=== PATIENT | male | born 1975 | race Caucasian/White ===

== ENCOUNTER 2018-04-28 09:19 | Inpatient (IN) | payer OTHER ==
[2018-04-28 09:41] VITALS: BMI 39.9
[2018-04-28] MEDS ORDERED: Sodium Chloride 0.9% 1,000 ML IV ONE (09:41)
--- NOTE | 2018-04-28 09:43 | C.PDOC ---
History Of Present Illness 42 year old male presents to the ED complaining of chest pain that began at 0530 this morning and palpitations ongoing for a while intermittently. Patient denies radiation of pain, leg swelling, nausea, vomiting, fever, chills or cough. Patient denies family history. Patient reports he is not on any medications. Time Seen by Provider: 04/28/18 09:29 Chief Complaint (Nursing): Chest Pain History Per: Patient History/Exam Limitations: no limitations Onset/Duration Of Symptoms: Hrs Current Symptoms Are (Timing): Still Present Past Medical History Reviewed: Historical Data, Nursing Documentation, Vital Signs Vital Signs: Last Vital Signs Temp 98 F 04/28/18 09:26 Pulse 71 04/28/18 11:42 Resp 18 04/28/18 11:42 BP 106/61 04/28/18 11:42 Pulse Ox 98 04/28/18 11:42 - Medical History PMH: No Chronic Diseases Other Surgeries: Hx of surgeries Family History: States: No Known Family Hx - Social History Hx Alcohol Use: No Hx Substance Use: No Review Of Systems Except As Marked, All Systems Reviewed And Found Negative. Constitutional: Negative for: Fever, Chills Cardiovascular: Positive for: Chest Pain, Palpitations Respiratory: Negative for: Cough, Shortness of Breath Gastrointestinal: Negative for: Nausea, Vomiting Physical Exam - Physical Exam Appears: Non-toxic, No Acute Distress Skin: Warm, Dry Head: Atraumatic, Normacephalic Eye(s): bilateral: Normal Inspection Nose: Normal Oral Mucosa: Moist Neck: Supple Chest: Symmetrical Cardiovascular: Rhythm Regular, Other (Tachycardic on exam ) Respiratory: Normal Breath Sounds, No Rales, No Rhonchi, No Wheezing Gastrointestinal/Abdominal: Soft, No Tenderness, No Guarding Extremity: No Pedal Edema, No Swelling Extremity: Bilateral: Atraumatic, Normal Color And Temperature, Normal ROM Neurological/Psych: Oriented x3, Normal Speech Gait: Steady ED Course And Treatment - Laboratory Results Result Diagrams: 04/28/18 09:50 04/28/18 09:50 Lab Interpretation: No Changes Compared To Prior Results ECG: Interpreted By Me, Viewed By Me ECG Rhythm: Atrial Fibrillation Rate From EC Pulse Ox Interpretation: Normal - Radiology CXR: Interpreted by Me CXR Interpretation: Yes: No Acute Disease Progress Note: Treated with IVF NSS, cardizem bolus and drip. 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 - Scribe Statement The provider has reviewed the documentation as recorded by the Scribe Vida Ghosh All medical record entries made by the Ciroibe were at my direction and personally dictated by me. I have reviewed the chart and agree that the record accurately reflects my personal performance of the history, physical exam, medical decision making, and the department course for this patient. I have also personally directed, reviewed, and agree with the discharge instructions and disposition. Decision To Admit - Pt Status Changed To: Hospital Disposition Of: Inpatient - Admit Certification Admit to Inpatient:: After my assessment, the patient will require hospitalization for at least two midnights. This is because of the severity of symptoms shown, intensity of services needed, and/or the medical risk in this patient being treated as an outpatient. - InPatient: Physician Admission Certification: I certify that this patient requires 2 or more midnights of care for the following reason:: New Onset A fib. Chest Pain - . Bed Request Type: Telemetry Admitting Physician: Boris Chow Patient Diagnosis: Chest pain, New onset a-fib
[2018-04-28 09:54] LABS: BASO # 0.1 K/uL (0.0-0.2); BASO % 0.7 % (0.0-2.0); EOS # 0.1 K/uL (0.0-0.7); EOS % 1.4 % (0.0-4.0); HEMOGLOBIN 15.3 g/dL (12.0-18.0); LYMPH # 2.2 K/uL (1.0-4.3); LYMPH % 32.5 % (20.0-40.0); MEAN CELL VOLUME 87.4 fL (80.0-94.0); MEAN CORPUSCULAR HEMOGLOBIN 30.7 pg (27.0-31.0); MEAN CORPUSCULAR HGB CONC 35.1 g/dL (33.0-37.0); MEAN PLATELET VOLUME 7.5 fL (7.2-11.7); MONO # 0.4 K/uL (0.0-0.8); MONO % 5.9 % (0.0-10.0); NEUT # 4.1 K/uL (1.8-7.0); NEUT % 59.5 % (50.0-75.0); RBC 4.98 Mil/uL (4.40-5.90); RED CELL DISTRIBUTION WIDTH 12.2 % (11.5-14.5); WHITE BLOOD COUNT 6.9 K/uL (4.8-10.8)
[2018-04-28] MEDS ORDERED: Sodium Chloride 0.9% 1,000 ML ONE (09:58)
[2018-04-28 10:12] LABS: ALB/GLOB RATIO 1.2 (1.0-2.1); ALBUMIN 3.9 g/dL (3.5-5.0); ALT/SGPT 37 U/L (21-72); AST/SGOT 26 U/L (17-59); BLOOD UREA NITROGEN 11 mg/dL (9-20); CALCIUM 8.7 mg/dl (8.6-10.4); GFR AFRICAN-AMERICAN > 60; GFR NON-AFRICAN AMERICAN > 60
[2018-04-28 11:49] LABS: URINE BILIRUBIN NEGATIVE (NEGATIVE); URINE BLOOD NEGATIVE (NEGATIVE); URINE CLARITY Clear (Clear); URINE COLOR Yellow (YELLOW); URINE GLUCOSE (UA) NORMAL (Normal); URINE LEUKOCYTE ESTERASE NEG Leu/uL (Negative); URINE PROTEIN NEGATIVE (NEGATIVE); URINE UROBILINOGEN NORMAL mg/dL (0.2-1.0)
[2018-04-28 12:06] LABS: BARBITURATES, UR NEGATIVE (NEGATIVE); BENZODIAZEPINES, UR NEGATIVE (NEGATIVE)
[2018-04-28 12:21] LABS: OPIATES, UR NEGATIVE (NEGATIVE); PHENCYCLIDINE, UR NEGATIVE (NEGATIVE)
[2018-04-28] MEDS ORDERED: Potassium Chloride 20 mEq ER Tab PO STA (13:05)
--- NOTE | 2018-04-28 13:08 | CP.PCM.HP ---
<Katelynn Denny - Last Filed: 04/28/18 19:44> History of Present Illness - History of Present Illness History of Present Illness: Patient seen and examined at approximately 12:45PM in ED Bed 14. Patient is a FULL CODE status at this time. Patient's emergency contact is his , Jacey Escalante. She can be reached at [phone]. CC: palpitations HPI: 42 year old male with no past medical history presents with complaints of palpitations which began around 5:30 AM this morning. Patient states that maybe his sugar was low, so he ate some honey and waited. When his symptoms didn't resolve, he decided to come to the emergency room. He states that he has been having symptoms for the past two weeks. Patient states that his symptoms have been exacerbated by activity. Patient also admits to some occasional shortness of breath at times within this time period as well. He states that he can only walk one block or climb two flights of stairs before feeling short of breath. Patient uses one pillow under his head when he sleeps at night. Patient states that he drinks red bull from time to time. Patient admits to headaches and some dizziness. Patient denies chest pain , recent sickness, subjective fevers or chills, nausea, vomiting or back pain. 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 Bethel Howard Present on Admission - Present on Admission Any Indicators Present on Admission: No Review of Systems - Constitutional Constitutional: Headache. absent: Fever, Frequent Falls - EENT Eyes: absent: Blurred Vision, Change in Vision Ears: absent: Decreased Hearing, Ear Discharge Nose/Mouth/Throat: absent: Nasal Congestion, Nasal Discharge - Cardiovascular Cardiovascular: Dyspnea, Dyspnea on Exertion, Palpitations. absent: Chest Pain at Rest, Rapid Heart Rate - Respiratory Respiratory: Dyspnea, Dyspnea on Exertion. absent: Cough, Chest Congestion, Pain with Coughing - Gastrointestinal Gastrointestinal: absent: Constipation, Diarrhea, Nausea, Vomiting - Genitourinary Genitourinary: absent: Difficulty Urinating, Dysuria - Musculoskeletal Musculoskeletal: absent: Back Pain, Muscle Weakness, Stiffness - Integumentary Integumentary: absent: Dry Skin, Rash - Neurological Neurological: absent: Abnormal Hearing, Confusion, Restless Legs, Weakness Past Patient History - Past Social History Smoking Status: Never Smoked Alcohol: None Drugs: Denies Home Situation {Lives}: With Family - PSYCHIATRIC Hx Substance Use: No - SURGICAL HISTORY Hx Surgeries: Yes Meds Allergies/Adverse Reactions: Allergies Allergy/AdvReac Type Severity Reaction Status Date / Time No Known Allergies Allergy Unverified 04/28/18 09:25 Physical Exam - Constitutional Appears: Non-toxic, No Acute Distress - Head Exam Head Exam: ATRAUMATIC, NORMAL INSPECTION, NORMOCEPHALIC - Eye Exam Eye Exam: EOMI, Normal appearance Pupil Exam: NORMAL ACCOMODATION - ENT Exam ENT Exam: Mucous Membranes Moist - Neck Exam Neck exam: Positive for: Full Rom - Respiratory Exam Respiratory Exam: NORMAL BREATHING PATTERN. absent: Wheezes - Cardiovascular Exam Cardiovascular Exam: Irregular Rhythm, +S1, +S2. absent: Tachycardia, JVD, Systolic Murmur - GI/Abdominal Exam GI & Abdominal Exam: Soft. absent: Guarding, Tenderness - Extremities Exam Extremities exam: Positive for: full ROM, normal capillary refill, pedal pulses present. Negative for: pedal edema Additional comments: superficial varicosities noted - Back Exam Back exam: FULL ROM - Neurological Exam Neurological exam: Alert, CN II-XII Intact, Oriented x3 - Psychiatric Exam Psychiatric exam: Normal Affect, Normal Mood - Skin Skin Exam: Dry, Intact, Warm Results - Vital Signs Recent Vital Signs: Last Vital Signs Temp 98 F 04/28/18 09:26 Pulse 71 04/28/18 11:42 Resp 18 04/28/18 11:42 BP 106/61 04/28/18 11:42 Pulse Ox 98 04/28/18 11:42 - Labs Result Diagrams: 04/28/18 09:50 04/28/18 09:50 Labs: Laboratory Results - last 24 hr 04/28/18 04/28/18 04/28/18 09:50 09:50 11:38 WBC 6.9 RBC 4.98 Hgb 15.3 Hct 43.5 MCV 87.4 MCH 30.7 MCHC 35.1 RDW 12.2 Plt Count 214 MPV 7.5 Neut % (Auto) 59.5 Lymph % (Auto) 32.5 [place] % (Auto) 5.9 Eos % (Auto) 1.4 Baso % (Auto) 0.7 Neut # (Auto) 4.1 Lymph # (Auto) 2.2 [place] # (Auto) 0.4 Eos # (Auto) 0.1 Baso # (Auto) 0.1 Sodium 141 Potassium 3.4 L Chloride 103 Carbon Dioxide 27 Anion Gap 14 BUN 11 Creatinine 0.7 L Est GFR ( Amer) > 60 Est GFR (Non-Af Amer) > 60 Random Glucose 131 H Calcium 8.7 Total Bilirubin 0.6 AST 26 ALT 37 Alkaline Phosphatase 61 Troponin I < 0.0120 Total Protein 7.1 Albumin 3.9 Globulin 3.3 Albumin/Globulin Ratio 1.2 TSH 3rd Generation 1.22 Urine Color Yellow Urine Clarity Clear Urine pH 7.0 Ur Specific [place] 1.013 Urine Protein Negative Urine Glucose (UA) Normal Urine Ketones Negative Urine Blood Negative Urine Nitrate Negative Urine Bilirubin Negative Urine Urobilinogen Normal Ur Leukocyte Esterase Neg Urine WBC (Auto) < 1 Urine RBC (Auto) < 1 Urine Opiates Screen Urine Methadone Screen Ur Barbiturates Screen Ur Phencyclidine Scrn Ur Amphetamines Screen U Benzodiazepines Scrn U Oth Cocaine Metabols U Cannabinoids Screen 04/28/18 11:38 WBC RBC Hgb Hct MCV MCH MCHC RDW Plt Count MPV Neut % (Auto) Lymph % (Auto) [place] % (Auto) Eos % (Auto) Baso % (Auto) Neut # (Auto) Lymph # (Auto) [place] # (Auto) Eos # (Auto) Baso # (Auto) Sodium Potassium Chloride Carbon Dioxide Anion Gap BUN Creatinine Est GFR ( Amer) Est GFR (Non-Af Amer) Random Glucose Calcium Total Bilirubin AST ALT Alkaline Phosphatase Troponin I Total Protein Albumin Globulin Albumin/Globulin Ratio TSH 3rd Generation Urine Color Urine Clarity Urine pH Ur Specific [place] Urine Protein Urine Glucose (UA) Urine Ketones Urine Blood Urine Nitrate Urine Bilirubin Urine Urobilinogen Ur Leukocyte Esterase Urine WBC (Auto) Urine RBC (Auto) Urine Opiates Screen Negative Urine Methadone Screen Negative Ur Barbiturates Screen Negative Ur Phencyclidine Scrn Negative Ur Amphetamines Screen Negative U Benzodiazepines Scrn Negative U Oth Cocaine Metabols Negative U Cannabinoids Screen Negative Assessment & Plan (1) New onset a-fib Assessment and Plan: Atrial fibrillation with RVR upon arrival in the ED Patient was administered Cardizem 15 mg IV in the ER. Cardizem drip also started. This was discontinued once patient's heart rate stabilized. EKG initially showed afib with RVR however repeat EKG showed atrial fibrillation with heart rate stabilized Will switch over to Cardizem 120 mg PO CD daily On telemetry Continue to monitor F/U AM labs Status: Acute (2) Palpitations Assessment and Plan: Thyroid studies performed- TSH within normal parameters (1.22). F/U Free T4 Will have to ask patient about red bull drink intake Status: Acute (3) Electrolyte abnormality Assessment and Plan: Repleted Continue to monitor Status: Acute (4) Prophylactic measure Assessment and Plan: Ambulates No GI Prophylaxis indicated at this time. Status: Acute <Boris Chow - Last Filed: 04/29/18 20:53> Results - Vital Signs Recent Vital Signs: Last Vital Signs Temp 97.5 F L 04/29/18 07:00 Pulse 100 H 04/29/18 08:00 Resp 20 04/29/18 07:00 BP 122/83 04/29/18 07:00 Pulse Ox 97 04/29/18 07:00 - Labs Result Diagrams: 04/29/18 08:28 04/29/18 08:28 Labs: Laboratory Results - last 24 hr 04/29/18 04/29/18 04/29/18 08:28 08:28 08:28 WBC 7.5 RBC 5.45 Hgb 16.6 Hct 47.5 MCV 87.2 MCH 30.6 MCHC 35.1 RDW 12.7 Plt Count 236 MPV 7.8 Neut % (Auto) 59.8 Lymph % (Auto) 33.5 [place] % (Auto) 5.5 Eos % (Auto) 0.8 Baso % (Auto) 0.4 Neut # (Auto) 4.5 Lymph # (Auto) 2.5 [place] # (Auto) 0.4 Eos # (Auto) 0.1 Baso # (Auto) 0.0 Sodium 140 Potassium 3.8 Chloride 104 Carbon Dioxide 26 Anion Gap 14 BUN 11 Creatinine 0.7 L Est GFR ( Amer) > 60 Est GFR (Non-Af Amer) > 60 Random Glucose 99 Hemoglobin A1c 5.5 Calcium 8.9 Phosphorus 3.0 Magnesium 2.0 Total Bilirubin 0.6 AST 23 ALT 39 Alkaline Phosphatase 76 Total Protein 7.4 Albumin 4.1 Globulin 3.3 Albumin/Globulin Ratio 1.3 Triglycerides 183 H Cholesterol 196 LDL Cholesterol Direct 133 H HDL Cholesterol 26 L Free T4 04/29/18 08:28 WBC RBC Hgb Hct MCV MCH MCHC RDW Plt Count MPV Neut % (Auto) Lymph % (Auto) [place] % (Auto) Eos % (Auto) Baso % (Auto) Neut # (Auto) Lymph # (Auto) [place] # (Auto) Eos # (Auto) Baso # (Auto) Sodium Potassium Chloride Carbon Dioxide Anion Gap BUN Creatinine Est GFR ( Amer) Est GFR (Non-Af Amer) Random Glucose Hemoglobin A1c Calcium Phosphorus Magnesium Total Bilirubin AST ALT Alkaline Phosphatase Total Protein Albumin Globulin Albumin/Globulin Ratio Triglycerides Cholesterol LDL Cholesterol Direct HDL Cholesterol Free T4 0.92 Attending/Attestation - Attestation I have personally seen and examined this patient.: Yes I have fully participated in the care of the patient.: Yes I have reviewed all pertinent clinical information: Yes Notes (Text): 04/29/18 20:53 This is late entry. Boris Chow D.O.
[2018-04-28] MEDS ORDERED: Potassium Chloride 20 mEq ER Tab PO ONE (13:38)
--- NOTE | 2018-04-28 13:54 | CARD ---
APPROVED REPORT Date of service: 04/28/2018 EXAM: Two-dimensional and M-mode echocardiogram with Doppler and color Doppler. Other Information Quality : GoodRhythm : NSR INDICATION Atrial Fibrillation M-Mode DIMENSIONS RVDd1.84 (2.1-3.2cm)Left Atrium (MM)3.69 (2.5-4.0cm) IVSd1.22 (0.7-1.1cm)Aortic Root3.39 (2.2-3.7cm) LVDd4.83 (4.0-5.6cm)Aortic Cusp Exc.2.14 (1.5-2.0cm) PWd1.18 (0.7-1.1cm)FS (%) 34 % LVDs3.21 (2.0-3.8cm)LVEF (%)62 (>50%) Aortic Valve AoV Peak Ycetckbn42.6cm/Rashi Peak GR.3mmHg Mitral Valve MV E Qxbauqkp51.8cm/sMV A Ymuwcnej22.6cm/sE/A ratio2.1 TDI E/Lateral E'0.0E/Medial E'0.0 Tricuspid Valve TR Peak [id number]/sTR Peak Gr.[id number] LEFT VENTRICLE The left ventricle is normal size. There is normal left ventricular wall thickness. The left ventricular systolic function is normal. The left ventricular ejection fraction is within the normal range. There is normal LV segmental wall motion. The left ventricular diastolic function is normal. Normal left atrial pressure. RIGHT VENTRICLE The right ventricular cavity appears prominent The right ventricular systolic function is normal. ATRIA The left atrium size is normal. The right atrium size is normal. The interatrial septum is intact with no evidence for an atrial septal defect. AORTIC VALVE The aortic valve is normal in structure. There is trace aortic regurgitation. MITRAL VALVE The mitral valve is normal in structure. TRICUSPID VALVE The tricuspid valve is normal in structure. There is mild tricuspid regurgitation. Right ventricular systolic pressure is estimated at less than 30 mmHg. PULMONIC VALVE The pulmonary valve is normal in structure. There is mild pulmonic valvular regurgitation. GREAT VESSELS The aortic root is normal in size. The IVC is normal in size and collapses >50% with inspiration. PERICARDIAL EFFUSION There is no pericardial effusion. <Conclusion> The left ventricular systolic function is normal. There is normal LV segmental wall motion. The right ventricular cavity appears prominent with normal systolic function. No significant valvular abnormality There is no pericardial effusion.
[2018-04-28 18:57] VITALS: RESP 20
--- NOTE | 2018-04-28 20:04 | CP.PCM.CON ---
History of Present Illness - History of Present Illness History of Present Illness: 42 year old no significant PMH presented with palpitation, afib treated with diltiazem, asymptomatic now, TSH normal f/u with echo, consider B todd, k 3.4 Review of Systems - Constitutional Constitutional: Anorexia. absent: Weakness - EENT Eyes: absent: Discharge Ears: absent: Ear Discharge Nose/Mouth/Throat: absent: Epistaxis - Cardiovascular Cardiovascular: Palpitations. absent: Acrocyanosis, Chest Pain, Diaphoresis, Syncope - Respiratory Respiratory: absent: Cough, Dyspnea, Hemoptysis - Gastrointestinal Gastrointestinal: absent: Abdominal Pain, Diarrhea, Vomiting - Genitourinary Genitourinary: absent: Change in Urinary Stream Past Patient History - Past Medical History & Family History Past Medical History?: No - Past Social History Smoking Status: Never Smoked Alcohol: None Drugs: Denies Home Situation {Lives}: With Family - MUSCULOSKELETAL/RHEUMATOLOGICAL Hx Falls: No - PSYCHIATRIC Hx Substance Use: No - SURGICAL HISTORY Hx Surgeries: Yes - ANESTHESIA Hx Anesthesia: No Hx Anesthesia Reactions: No Meds Home Medications: Home Medication List Medication Instructions Recorded Confirmed Type Aspirin [Aspirin Chewable] 81 mg PO DAILY 30 Days chew 04/29/18 Rx Atenolol [Tenormin] 25 mg PO DAILY 30 Days tab 04/29/18 Rx Allergies/Adverse Reactions: Allergies Allergy/AdvReac Type Severity Reaction Status Date / Time No Known Allergies Allergy Unverified 04/28/18 09:25 - Medications Medications: Current Medications Aspirin (Aspirin Chewable) 81 mg PO DAILY [facility] Diltiazem HCl (Cardizem Cd) 120 mg PO DAILY [facility] Heparin Sodium (Porcine) (Heparin) 5,000 units SC Q8 [facility] Physical Exam - Constitutional Appears: Non-toxic - Head Exam Head Exam: ATRAUMATIC - Eye Exam Eye Exam: EOMI - Neck Exam Neck exam: Negative for: Lymphadenopathy, Thyromegaly - Respiratory Exam Respiratory Exam: Clear to Auscultation Bilateral. absent: Rales - Cardiovascular Exam Cardiovascular Exam: Irregular Rhythm. absent: Systolic Murmur - GI/Abdominal Exam GI & Abdominal Exam: Normal Bowel Sounds. absent: Organomegaly - Rectal Exam Rectal Exam: Deferred - Extremities Exam Extremities exam: Positive for: normal capillary refill. Negative for: calf tenderness - Neurological Exam Neurological exam: Alert, Oriented x3 Results - Vital Signs Recent Vital Signs: Last Vital Signs Temp 97.8 F 04/28/18 18:10 Pulse 89 04/28/18 18:10 Resp 20 04/28/18 18:10 BP 111/80 04/28/18 18:10 Pulse Ox 97 04/28/18 18:10 - Labs Result Diagrams: 04/29/18 08:28 04/29/18 08:28 Labs: Laboratory Results - last 24 hr 04/28/18 04/28/18 04/28/18 09:50 09:50 11:38 WBC 6.9 RBC 4.98 Hgb 15.3 Hct 43.5 MCV 87.4 MCH 30.7 MCHC 35.1 RDW 12.2 Plt Count 214 MPV 7.5 Neut % (Auto) 59.5 Lymph % (Auto) 32.5 [place] % (Auto) 5.9 Eos % (Auto) 1.4 Baso % (Auto) 0.7 Neut # (Auto) 4.1 Lymph # (Auto) 2.2 [place] # (Auto) 0.4 Eos # (Auto) 0.1 Baso # (Auto) 0.1 Sodium 141 Potassium 3.4 L Chloride 103 Carbon Dioxide 27 Anion Gap 14 BUN 11 Creatinine 0.7 L Est GFR ( Amer) > 60 Est GFR (Non-Af Amer) > 60 Random Glucose 131 H Calcium 8.7 Total Bilirubin 0.6 AST 26 ALT 37 Alkaline Phosphatase 61 Troponin I < 0.0120 Total Protein 7.1 Albumin 3.9 Globulin 3.3 Albumin/Globulin Ratio 1.2 TSH 3rd Generation 1.22 Urine Color Yellow Urine Clarity Clear Urine pH 7.0 Ur Specific [place] 1.013 Urine Protein Negative Urine Glucose (UA) Normal Urine Ketones Negative Urine Blood Negative Urine Nitrate Negative Urine Bilirubin Negative Urine Urobilinogen Normal Ur Leukocyte Esterase Neg Urine WBC (Auto) < 1 Urine RBC (Auto) < 1 Urine Opiates Screen Urine Methadone Screen Ur Barbiturates Screen Ur Phencyclidine Scrn Ur Amphetamines Screen U Benzodiazepines Scrn U Oth Cocaine Metabols U Cannabinoids Screen 04/28/18 11:38 WBC RBC Hgb Hct MCV MCH MCHC RDW Plt Count MPV Neut % (Auto) Lymph % (Auto) [place] % (Auto) Eos % (Auto) Baso % (Auto) Neut # (Auto) Lymph # (Auto) [place] # (Auto) Eos # (Auto) Baso # (Auto) Sodium Potassium Chloride Carbon Dioxide Anion Gap BUN Creatinine Est GFR ( Amer) Est GFR (Non-Af Amer) Random Glucose Calcium Total Bilirubin AST ALT Alkaline Phosphatase Troponin I Total Protein Albumin Globulin Albumin/Globulin Ratio TSH 3rd Generation Urine Color Urine Clarity Urine pH Ur Specific [place] Urine Protein Urine Glucose (UA) Urine Ketones Urine Blood Urine Nitrate Urine Bilirubin Urine Urobilinogen Ur Leukocyte Esterase Urine WBC (Auto) Urine RBC (Auto) Urine Opiates Screen Negative Urine Methadone Screen Negative Ur Barbiturates Screen Negative Ur Phencyclidine Scrn Negative Ur Amphetamines Screen Negative U Benzodiazepines Scrn Negative U Oth Cocaine Metabols Negative U Cannabinoids Screen Negative Assessment & Plan (1) New onset a-fib Status: Acute Comment: rate control, stable hemodynamically, ? lone observe no anticoag
--- NOTE | 2018-04-28 21:14 | RAD ---
Date of service: 04/28/2018 HISTORY: SOB COMPARISON: No prior. TECHNIQUE: Chest PA and lateral FINDINGS: LUNGS: No active pulmonary disease. PLEURA: No significant pleural effusion identified. No pneumothorax apparent. CARDIOVASCULAR: Normal. OSSEOUS STRUCTURES: No significant abnormalities. VISUALIZED UPPER ABDOMEN: Normal. OTHER FINDINGS: None. IMPRESSION: No active disease.
[2018-04-29 08:27] VITALS: BP 122/83; TEMP 97.5; O2SAT 97
[2018-04-29 08:47] LABS: BASO % 0.4 % (0.0-2.0); EOS # 0.1 K/uL (0.0-0.7); EOS % 0.8 % (0.0-4.0); HEMOGLOBIN 16.6 g/dL (12.0-18.0); LYMPH # 2.5 K/uL (1.0-4.3); LYMPH % 33.5 % (20.0-40.0); MEAN CELL VOLUME 87.2 fL (80.0-94.0); MEAN CORPUSCULAR HEMOGLOBIN 30.6 pg (27.0-31.0); MEAN CORPUSCULAR HGB CONC 35.1 g/dL (33.0-37.0); MEAN PLATELET VOLUME 7.8 fL (7.2-11.7); MONO # 0.4 K/uL (0.0-0.8); MONO % 5.5 % (0.0-10.0); NEUT # 4.5 K/uL (1.8-7.0); NEUT % 59.8 % (50.0-75.0); NRBC % 0.4 % (0.0-2.0); RBC 5.45 Mil/uL (4.40-5.90); RED CELL DISTRIBUTION WIDTH 12.7 % (11.5-14.5); WHITE BLOOD COUNT 7.5 K/uL (4.8-10.8)
[2018-04-29 08:53] LABS: ALB/GLOB RATIO 1.3 (1.0-2.1); ALBUMIN 4.1 g/dL (3.5-5.0); ALT/SGPT 39 U/L (21-72); AST/SGOT 23 U/L (17-59); BLOOD UREA NITROGEN 11 mg/dL (9-20); CALCIUM 8.9 mg/dl (8.6-10.4); GFR AFRICAN-AMERICAN > 60; GFR NON-AFRICAN AMERICAN > 60; HDL CHOLESTEROL 26 mg/dL (30-70)
[2018-04-29 09:01] LABS: LDL CHOLESTEROL 133 mg/dL (0-129)
[2018-04-29 09:05] VITALS: PULSE 100
--- NOTE | 2018-04-29 09:21 | CP.PCM.PN ---
Subjective - Date & Time of Evaluation Date of Evaluation: 04/29/18 Time of Evaluation: 09:10 - Subjective Subjective: Hospitalist Progress Note Patient was seen and examined at 9:10 AM 04/29/18 [address] 42 year old male (with no significant past medical history) who presented to [facility] on 04/28/18 with complaints of palpitations associated with shortness of breath on and off for 2 weeks. 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 He was found to be in Atrial Fibrillation with Rapid Ventricular Response that responded to cardizem drip and cardizem PO. His [id number] score was 0 and therefore we have placed him on ASA. Echocardiogram was unremarkable. TSH and T4 are WNL. UDS shows no evidence of drug abuse. Since late night 04/28/18 through this morning this morning his heart rate has been predominantly in the 120s and he is still in AF as per review of Retail Route Supervisor. Therefore patient has been switched from Cardizem to Atenolol to see if we can get a better control on the heart rate. If rate is better controlled on Atenolol then we will discharge patient. Currently upon FULL ROS: Anxious to get home as he has work tomorrow and can't afford to miss work. Explained to him that Medicine Team will do their best to get him home safely and that we needed better control over the heart rate. NO chest pain NO palpitations NO SOB/cough/dyspnea/wheezing NO n/v/d/c: moving bowels normally NO issues with urination NO lightheadedness/dizziness NO other complaints upon FULL ROS Exam: General: AAOX3, NAD HEENT: NCA, EOMI, PERRLA, NO cervical/supraclavicular/submandibular lymphadenopathy, NO pharyngeal erythema/exudate, Nasal Turbinates are nonerythematous/nonedematous, Oral Mucosa is moist Cardio: NS1 and NS2, Irregularly irregular Resp: CTA B/L, NO R/R/W GI: BSx4, Soft, NT, NO HSM, NO guarding/rebound tenderness Ext: Pulses are strong and equal, Capillary Refill is 2 seconds, NO edema Neuro: CN II through XII are grossly intact Assessments: 1). Atrial Fibrillation with RVR Please see HPI for details Echocardiogram: LVSF is normal, normal LV segmental wall motion, RVSF is normal , NO valvular abnormalities, NO pericardial effusions D/C Cardizem and started on Atenolol 25 mg PO 1x/day to see if we can get better rate control ASA 81 mg PO 1x/day Counseled on avoiding caffeine, alcohol, energy drinks Disposition: If better rate control then will discharge patient and have him follow up with [facility] Boris Chow D.O. Objective - Vital Signs/Intake and Output Vital Signs (last 24 hours): Temp Pulse Resp BP Pulse Ox 97.5 F L 100 H 20 122/83 97 04/29/18 07:00 04/29/18 08:00 04/29/18 07:00 04/29/18 07:00 04/29/18 07:00 Intake and Output: 04/29/18 04/29/18 06:59 18:59 Intake Total 300 Balance 300 - Medications Medications: Current Medications Aspirin (Aspirin Chewable) 81 mg PO DAILY [facility] Atenolol (Tenormin) 25 mg PO DAILY [facility] Heparin Sodium (Porcine) (Heparin) 5,000 units SC Q8 [facility] Last Admin: 04/29/18 05:44 Dose: 5,000 units - Labs Labs: 04/29/18 08:28 04/29/18 08:28
[2018-04-29] MEDS ORDERED: diltiaZEM 120 mg/24 Hours CD Cap PO SCH (10:00)
--- NOTE | 2018-04-29 13:40 | CP.PCM.DIS ---
<Katelynn Denny - Last Filed: 04/29/18 15:41> Provider - Provider Date of Admission: 04/28/18 11:07 Attending physician: Boris Chow MD Consults: Cardiology- (Dr. Ocampo) Time Spent in preparation of Discharge (in minutes): 39 Diagnosis - Discharge Diagnosis (1) New onset a-fib Status: Acute (2) Palpitations Status: Acute (3) Electrolyte abnormality Status: Resolved (4) Prophylactic measure Status: Acute Hospital Course - Lab Results Lab Results: Most Recent Lab Values WBC 7.5 K/uL (4.8-10.8) 04/29/18 08:28 RBC 5.45 Mil/uL (4.40-5.90) 04/29/18 08:28 Hgb 16.6 g/dL (12.0-18.0) 04/29/18 08:28 Hct 47.5 % (35.0-51.0) 04/29/18 08:28 MCV 87.2 fL (80.0-94.0) 04/29/18 08:28 MCH 30.6 pg (27.0-31.0) 04/29/18 08:28 MCHC 35.1 g/dL (33.0-37.0) 04/29/18 08:28 RDW 12.7 % (11.5-14.5) 04/29/18 08:28 Plt Count 236 K/uL (130-400) 04/29/18 08:28 MPV 7.8 fL (7.2-11.7) 04/29/18 08:28 Neut % (Auto) 59.8 % (50.0-75.0) 04/29/18 08:28 Lymph % (Auto) 33.5 % (20.0-40.0) 04/29/18 08:28 Bailey % (Auto) 5.5 % (0.0-10.0) 04/29/18 08:28 Eos % (Auto) 0.8 % (0.0-4.0) 04/29/18 08:28 Baso % (Auto) 0.4 % (0.0-2.0) 04/29/18 08:28 Neut # (Auto) 4.5 K/uL (1.8-7.0) 04/29/18 08:28 Lymph # (Auto) 2.5 K/uL (1.0-4.3) 04/29/18 08:28 Bailey # (Auto) 0.4 K/uL (0.0-0.8) 04/29/18 08:28 Eos # (Auto) 0.1 K/uL (0.0-0.7) 04/29/18 08:28 Baso # (Auto) 0.0 K/uL (0.0-0.2) 04/29/18 08:28 Sodium 140 mmol/L (132-148) 04/29/18 08:28 Potassium 3.8 mmol/L (3.6-5.2) 04/29/18 08:28 Chloride 104 mmol/L (98-107) 04/29/18 08:28 Carbon Dioxide 26 mmol/L (22-30) 04/29/18 08:28 Anion Gap 14 (10-20) 04/29/18 08:28 BUN 11 mg/dL (9-20) 04/29/18 08:28 Creatinine 0.7 mg/dL (0.8-1.5) L 04/29/18 08:28 Est GFR ( Amer) > 60 04/29/18 08:28 Est GFR (Non-Af Amer) > 60 04/29/18 08:28 Random Glucose 99 mg/dL (75-110) 04/29/18 08:28 Hemoglobin A1c 5.5 % (4.2-6.5) 04/29/18 08:28 Calcium 8.9 mg/dl (8.6-10.4) 04/29/18 08:28 Phosphorus 3.0 mg/dL (2.5-4.5) 04/29/18 08:28 Magnesium 2.0 mg/dL (1.6-2.3) 04/29/18 08:28 Total Bilirubin 0.6 mg/dL (0.2-1.3) 04/29/18 08:28 AST 23 U/L (17-59) 04/29/18 08:28 ALT 39 U/L (21-72) 04/29/18 08:28 Alkaline Phosphatase 76 U/L (38-126) 04/29/18 08:28 Troponin I < 0.0120 ng/mL (0.00-0.120) 04/28/18 09:50 Total Protein 7.4 g/dL (6.3-8.3) 04/29/18 08:28 Albumin 4.1 g/dL (3.5-5.0) 04/29/18 08:28 Globulin 3.3 gm/dL (2.2-3.9) 04/29/18 08:28 Albumin/Globulin Ratio 1.3 (1.0-2.1) 04/29/18 08:28 Triglycerides 183 mg/dL (0-149) H 04/29/18 08:28 Cholesterol 196 mg/dL (0-199) 04/29/18 08:28 LDL Cholesterol Direct 133 mg/dL (0-129) H 04/29/18 08:28 HDL Cholesterol 26 mg/dL (30-70) L 04/29/18 08:28 Free T4 0.92 ng/dL (0.78-2.19) 04/29/18 08:28 TSH 3rd Generation 1.22 mIU/L (0.46-4.68) 04/28/18 09:50 Urine Color Yellow (YELLOW) 04/28/18 11:38 Urine Clarity Clear (Clear) 04/28/18 11:38 Urine pH 7.0 (5.0-8.0) 04/28/18 11:38 Ur Specific [place] 1.013 (1.003-1.030) 04/28/18 11:38 Urine Protein Negative mg/dL (NEGATIVE) 04/28/18 11:38 Urine Glucose (UA) Normal mg/dL (Normal) 04/28/18 11:38 Urine Ketones Negative mg/dL (NEGATIVE) 04/28/18 11:38 Urine Blood Negative (NEGATIVE) 04/28/18 11:38 Urine Nitrate Negative (NEGATIVE) 04/28/18 11:38 Urine Bilirubin Negative (NEGATIVE) 04/28/18 11:38 Urine Urobilinogen Normal mg/dL (0.2-1.0) 04/28/18 11:38 Ur Leukocyte Esterase Neg Lori/uL (Negative) 04/28/18 11:38 Urine WBC (Auto) < 1 /hpf (0-5) 04/28/18 11:38 Urine RBC (Auto) < 1 /hpf (0-3) 08/11/18 11:38 Urine Opiates Screen Negative (NEGATIVE) 04/28/18 11:38 Urine Methadone Screen Negative (NEGATIVE) 04/28/18 11:38 Ur Barbiturates Screen Negative (NEGATIVE) 04/28/18 11:38 Ur Phencyclidine Scrn Negative (NEGATIVE) 04/28/18 11:38 Ur Amphetamines Screen Negative (NEGATIVE) 04/28/18 11:38 U Benzodiazepines Scrn Negative (NEGATIVE) 04/28/18 11:38 U Oth Cocaine Metabols Negative (NEGATIVE) 04/28/18 11:38 U Cannabinoids Screen Negative (NEGATIVE) 04/28/18 11:38 - Hospital Course Hospital Course: On Admission: HPI: 42 year old male with no past medical history presents with complaints of palpitations which began around 5:30 AM this morning. Patient states that maybe his sugar was low, so he ate some honey and waited. When his symptoms didn't resolve, he decided to come to the emergency room. He states that he has been having symptoms for the past two weeks. Patient states that his symptoms have been exacerbated by activity. Patient also admits to some occasional shortness of breath at times within this time period as well. He states that he can only walk one block or climb two flights of stairs before feeling short of breath. Patient uses one pillow under his head when he sleeps at night. Patient states that he drinks red bull from time to time. Patient admits to headaches and some dizziness. Patient denies chest pain , recent sickness, subjective fevers or chills, nausea, vomiting or back pain. Hospital Course: Patient presented with complaints as stated above. At the time patient was seen in the ER, patient was found to be in atrial fibrillation in RVR. Patient was administered Cardizem 15 mg IV in the ER. Cardizem drip also started. This was discontinued once patient's heart rate stabilized. Patient had echo performed which showed- EF of 62%. LV systolic function is normal with normal LV segmental wall motion. No significant valvular abnormality. No pericardial effusion noted. Consult placed to Cardiology with recommendations for rate control with continuing medical management. Patient's rate stabilized through the day on admission but then increased again. Patient was initially placed on Cardizem 120 mg PO daily. Patient was switched to Atenolol 25 mg PO daily with noted improvement. Patient also started on ASA as well. Lipid Panel elevated for triglycerides and LDL. HDL level low. Diet and exercise counseling reinforced. This is a brief summary of events. For a complete course, refer to the medical record. DC instructions: Patient is medically stable for discharge home. Patient to follow up with primary medical doctor within one week. Patient to follow up with tubing supervisor, Dr. Ocampo within one week. Patient to begin two new medications: Aspirin 81 mg , take one by mouth daily. Atenolol 25 mg , take one by mouth daily. Patient has been counseled on dietary intake. Patient counseled to avoid caffeine and drinking energy drinks such as Monster or Red Bull. If symptoms return, go to the emergency room. Instructions explained to patient who is aware. Discharge Exam - Head Exam Head Exam: ATRAUMATIC, NORMAL INSPECTION, NORMOCEPHALIC - Eye Exam Eye Exam: EOMI, Normal appearance, PERRL Pupil Exam: NORMAL ACCOMODATION - ENT Exam ENT Exam: Mucous Membranes Moist - Neck Exam Neck exam: Full Rom (no lymphadenopathy) - Respiratory Exam Respiratory Exam: NORMAL BREATHING PATTERN. absent: Wheezes - Cardiovascular Exam Cardiovascular Exam: +S1, +S2 - GI/Abdominal Exam GI & Abdominal Exam: Soft. absent: Distended, Firm, Normal Bowel Sounds, Rebound, Rigid, Tenderness - Extremities Exam Extremities exam: full ROM, joint swelling - Back Exam Back exam: FULL ROM - Neurological Exam Neurological exam: Alert, CN II-XII Intact, Oriented x3 - Psychiatric Exam Psychiatric exam: Normal Affect, Normal Mood - Skin Skin Exam: Dry, Normal Color, Warm Discharge Plan - Discharge Medications Prescriptions: Aspirin [Aspirin Chewable] 81 mg PO DAILY 30 Days chew Atenolol [Tenormin] 25 mg PO DAILY 30 Days tab - Follow Up Plan Condition: IMPROVED Disposition: HOME/ ROUTINE Instructions: Atrial Fibrillation (DC), Palpitations (DC) Additional Instructions: Patient is medically stable for discharge home. Patient to follow up with primary medical doctor within one week. Patient to follow up with tubing supervisor, Dr. Ocampo within one week. Patient to begin two new medications: Aspirin 81 mg , take one by mouth daily. Atenolol 25 mg , take one by mouth daily. Patient has been counseled on dietary intake. Patient counseled to avoid drinking energy drinks such as Monster or Red Bull. If symptoms return, go to the emergency room. Instructions explained to patient who is aware. Referrals: Bethel Mcadams MD [Medical Doctor] - Lambert Ocampo MD [Staff Provider] - <Boris Chow - Last Filed: 04/29/18 20:51> Provider - Provider Date of Admission: 04/28/18 11:07 Attending physician: Boris Chow MD Time Spent in preparation of Discharge (in minutes): 40 Hospital Course - Lab Results Lab Results: Most Recent Lab Values WBC 7.5 K/uL (4.8-10.8) 04/29/18 08:28 RBC 5.45 Mil/uL (4.40-5.90) 04/29/18 08:28 Hgb 16.6 g/dL (12.0-18.0) 04/29/18 08:28 Hct 47.5 % (35.0-51.0) 04/29/18 08:28 MCV 87.2 fL (80.0-94.0) 04/29/18 08:28 MCH 30.6 pg (27.0-31.0) 04/29/18 08:28 MCHC 35.1 g/dL (33.0-37.0) 04/29/18 08:28 RDW 12.7 % (11.5-14.5) 04/29/18 08:28 Plt Count 236 K/uL (130-400) 04/29/18 08:28 MPV 7.8 fL (7.2-11.7) 04/29/18 08:28 Neut % (Auto) 59.8 % (50.0-75.0) 04/29/18 08:28 Lymph % (Auto) 33.5 % (20.0-40.0) 04/29/18 08:28 Bailey % (Auto) 5.5 % (0.0-10.0) 04/29/18 08:28 Eos % (Auto) 0.8 % (0.0-4.0) 04/29/18 08:28 Baso % (Auto) 0.4 % (0.0-2.0) 04/29/18 08:28 Neut # (Auto) 4.5 K/uL (1.8-7.0) 04/29/18 08:28 Lymph # (Auto) 2.5 K/uL (1.0-4.3) 04/29/18 08:28 Bailey # (Auto) 0.4 K/uL (0.0-0.8) 04/29/18 08:28 Eos # (Auto) 0.1 K/uL (0.0-0.7) 04/29/18 08:28 Baso # (Auto) 0.0 K/uL (0.0-0.2) 04/29/18 08:28 Sodium 140 mmol/L (132-148) 04/29/18 08:28 Potassium 3.8 mmol/L (3.6-5.2) 04/29/18 08:28 Chloride 104 mmol/L (98-107) 04/29/18 08:28 Carbon Dioxide 26 mmol/L (22-30) 04/29/18 08:28 Anion Gap 14 (10-20) 04/29/18 08:28 BUN 11 mg/dL (9-20) 04/29/18 08:28 Creatinine 0.7 mg/dL (0.8-1.5) L 04/29/18 08:28 Est GFR ( Amer) > 60 04/29/18 08:28 Est GFR (Non-Af Amer) > 60 04/29/18 08:28 Random Glucose 99 mg/dL (75-110) 04/29/18 08:28 Hemoglobin A1c 5.5 % (4.2-6.5) 04/29/18 08:28 Calcium 8.9 mg/dl (8.6-10.4) 04/29/18 08:28 Phosphorus 3.0 mg/dL (2.5-4.5) 04/29/18 08:28 Magnesium 2.0 mg/dL (1.6-2.3) 04/29/18 08:28 Total Bilirubin 0.6 mg/dL (0.2-1.3) 04/29/18 08:28 AST 23 U/L (17-59) 04/29/18 08:28 ALT 39 U/L (21-72) 04/29/18 08:28 Alkaline Phosphatase 76 U/L (38-126) 04/29/18 08:28 Troponin I < 0.0120 ng/mL (0.00-0.120) 04/28/18 09:50 Total Protein 7.4 g/dL (6.3-8.3) 04/29/18 08:28 Albumin 4.1 g/dL (3.5-5.0) 04/29/18 08:28 Globulin 3.3 gm/dL (2.2-3.9) 04/29/18 08:28 Albumin/Globulin Ratio 1.3 (1.0-2.1) 04/29/18 08:28 Triglycerides 183 mg/dL (0-149) H 04/29/18 08:28 Cholesterol 196 mg/dL (0-199) 04/29/18 08:28 LDL Cholesterol Direct 133 mg/dL (0-129) H 04/29/18 08:28 HDL Cholesterol 26 mg/dL (30-70) L 04/29/18 08:28 Free T4 0.92 ng/dL (0.78-2.19) 04/29/18 08:28 TSH 3rd Generation 1.22 mIU/L (0.46-4.68) 04/28/18 09:50 Urine Color Yellow (YELLOW) 04/28/18 11:38 Urine Clarity Clear (Clear) 04/28/18 11:38 Urine pH 7.0 (5.0-8.0) 04/28/18 11:38 Ur Specific [place] 1.013 (1.003-1.030) 04/28/18 11:38 Urine Protein Negative mg/dL (NEGATIVE) 04/28/18 11:38 Urine Glucose (UA) Normal mg/dL (Normal) 04/28/18 11:38 Urine Ketones Negative mg/dL (NEGATIVE) 04/28/18 11:38 Urine Blood Negative (NEGATIVE) 04/28/18 11:38 Urine Nitrate Negative (NEGATIVE) 04/28/18 11:38 Urine Bilirubin Negative (NEGATIVE) 04/28/18 11:38 Urine Urobilinogen Normal mg/dL (0.2-1.0) 04/28/18 11:38 Ur Leukocyte Esterase Neg Lori/uL (Negative) 04/28/18 11:38 Urine WBC (Auto) < 1 /hpf (0-5) 04/28/18 11:38 Urine RBC (Auto) < 1 /hpf (0-3) 04/28/18 11:38 Urine Opiates Screen Negative (NEGATIVE) 04/28/18 11:38 Urine Methadone Screen Negative (NEGATIVE) 04/28/18 11:38 Ur Barbiturates Screen Negative (NEGATIVE) 04/28/18 11:38 Ur Phencyclidine Scrn Negative (NEGATIVE) 04/28/18 11:38 Ur Amphetamines Screen Negative (NEGATIVE) 04/28/18 11:38 U Benzodiazepines Scrn Negative (NEGATIVE) 04/28/18 11:38 U Oth Cocaine Metabols Negative (NEGATIVE) 04/28/18 11:38 U Cannabinoids Screen Negative (NEGATIVE) 04/28/18 11:38 Attending/Attestation - Attestation I have personally seen and examined this patient.: Yes I have fully participated in the care of the patient.: Yes I have reviewed all pertinent clinical information, including history, physical exam and plan: Yes
[2018-04-29] MEDS ORDERED: Pneumococcal 23-Valent Vaccine IM ONE (15:02)
--- NOTE | 2018-04-29 22:31 | CP.PCM.PN ---
Subjective - Date & Time of Evaluation Date of Evaluation: 04/29/18 Time of Evaluation: 16:00 - Subjective Subjective: echo with nl lv no valvular disease B Blpker, no OAG lone Objective - Vital Signs/Intake and Output Vital Signs (last 24 hours): Temp Pulse Resp BP Pulse Ox 97.5 F L 100 H 20 122/83 97 04/29/18 07:00 04/29/18 08:00 04/29/18 07:00 04/29/18 07:00 04/29/18 07:00 - Labs Labs: 04/29/18 08:28 04/29/18 08:28 - Constitutional Appears: Non-toxic - Head Exam Head Exam: ATRAUMATIC - Eye Exam Eye Exam: EOMI - ENT Exam ENT Exam: Mucous Membranes Moist - Neck Exam Neck Exam: absent: Lymphadenopathy, Thyromegaly - Respiratory Exam Respiratory Exam: Clear to Ausculation Bilateral. absent: Chest Wall Tenderness , Rales - Cardiovascular Exam Cardiovascular Exam: REGULAR RHYTHM. absent: Murmur - GI/Abdominal Exam GI & Abdominal Exam: Normal Bowel Sounds. absent: Organomegaly - Rectal Exam Rectal Exam: Deferred - Extremities Exam Extremities Exam: Normal Capillary Refill. absent: Calf Tenderness - Neurological Exam Neurological Exam: Alert, Oriented x3 Assessment and Plan (1) New onset a-fib Assessment & Plan: Rate control Status: Acute
== END 2018-04-29 15:19 | disposition home or self-care (01) | DRG 138 ==
LOC: C.ER 09:19 → C.9E 11:07 → C.6T 17:24
PROVIDERS: ADMIT Family Medicine; ATTEND Family Medicine
DX: I48.91 Unspecified atrial fibrillation (principal); E87.8 Other disorders of electrolyte and fluid balance, not elsewhere classified